=== PATIENT | female | born 1995 | race Caucasian/White ===

== ENCOUNTER 2018-07-29 14:37 | Emergency (ER) | payer OTHER ==
[2018-07-29 14:55] VITALS: BP 127/96
[2018-07-29] MEDS ORDERED: KETOROLAC TROMETHAMINE 10 MG TABLET PO ONE (15:29)
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
--- NOTE | 2018-07-29 21:06 | EKG REPORT ---
SEVERITY:- NORMAL ECG - SINUS RHYTHM : Confirmed by: Daisy Dyer MD 29-Jul-2018 21:05:48
== END 2018-07-29 16:00 | disposition home or self-care (01) ==
LOC: ER 14:37
DX: J30.9 Allergic rhinitis, unspecified (principal); G44.89 Other headache syndrome; R07.9 Chest pain, unspecified; R42 Dizziness and giddiness; R11.0 Nausea
CPT/HCPCS: 93005; 99284; 93010; J3490

== ENCOUNTER 2019-05-18 13:13 | Emergency (ER) | payer OTHER ==
--- NOTE | 2019-05-18 13:57 | ER Document Report ---
ED Medical Screen (RME) - General Chief Complaint: Vaginal Bleeding Stated Complaint: LIGHTHEADED,HEADACHE Time Seen by Provider: 05/18/19 13:52 Primary Care Provider: RAIZA DURHAM MD [Primary Care Provider] - Follow up as needed TRAVEL OUTSIDE OF THE [place] IN LAST 30 DAYS: No - HPI Notes: 05/18/19 13:55 Patient is a 24-year-old female with a history of IBS who presents complaining of vaginal bleeding for 3 weeks with associated lightheadedness and intermittent palpitations. Patient states that her bleeding has become heavier this past week. She still urinating normally and having normal bowel movements. She is on oral control pills. Last episode of palpitations was upon arrival that lasted for 30 seconds. Denies drug allergies. Denies TOL[place]O, fever, neck pain, URI, CP, SOB, Abd pain, dysuria, back pain, or rash. I have treated and performed a rapid initial assessment of this patient. A comprehensive ED assessment and evaluation of the patient, analysis of test results and completion of medical decision making process will be conducted by additional ED providers. PHYSICAL EXAMINATION: GENERAL: Well-appearing, well-nourished and in no acute distress. A&Ox4. Answers questions appropriately. LUNGS: Breath sounds clear to auscultation bilaterally and equal. No wheezes rales or rhonchi. HEART: Regular rate and rhythm without murmurs, rubs, gallops. ABDOMEN: Soft, nondistended abdomen. No guarding, no rebound. Normal bowel sounds present. No CVA tenderness bilaterally. Grossly nontender (cannot elicit thorough abd exam w/o bed, however). Ext: No edema, calf tenderness, lower extremity asymmetry. - Related Data Allergies/Adverse Reactions: No Known Allergies Allergy (Verified 05/18/19 13:14) Past Medical History - Social History Chew tobacco use (# tins/day): No Frequency of alcohol use: None Drug Abuse: None Pulmonary Medical History: Reports: Hx Asthma - as child Renal/ Medical History: Denies: Hx Peritoneal Dialysis GI Medical History: Reports: Hx Irritable Bowel Physical Exam - Vital signs Vitals: Temp Pulse Resp BP Pulse Ox 98.6 F 74 20 146/92 H 98 05/18/19 13:23 05/18/19 13:23 05/18/19 13:23 05/18/19 13:23 05/18/19 13:23 Course - Vital Signs Vital signs: Temp Pulse Resp BP Pulse Ox 98.6 F 74 20 146/92 H 98 05/18/19 13:23 05/18/19 13:23 05/18/19 13:23 05/18/19 13:23 05/18/19 13:23 Doctor's Discharge - Discharge Referrals: RAIZA DURHAM MD [Primary Care Provider] - Follow up as needed
[2019-05-18 14:46] LABS: ABSOLUTE EOSINOPHILS # (AUTO) 0.1 10^3/uL (0.0-0.6); ABSOLUTE LYMPHOCYTES (AUTO) 3.9 10^3/uL (0.5-4.7); ABSOLUTE MONOCYTES (AUTO) 0.6 10^3/uL (0.1-1.4); ABSOLUTE NEUT (AUTO) 4.6 10^3/uL (1.7-8.2); BASOPHILS % (AUTO) 0.5 % (0-2); EOSINOPHILS % (AUTO) 1.4 % (0-6); HEMATOCRIT 39.7 % (36.0-47.0); HEMOGLOBIN 13.6 g/dL (12.0-15.5); LYMPHOCYTES % (AUTO) 41.7 % (13-45); MEAN CORPUSCULAR HGB CONC 34.3 g/dL (32.0-36.0); MEAN CORPUSCULAR VOLUME 88 fl (80-97); MONOCYTES % (AUTO) 6.9 % (3-13); PLATELET COUNT 266 10^3/uL (150-450); RED BLOOD COUNT 4.53 10^6/uL (3.72-5.28); RED CELL DISTRIBUTION WIDTH 12.9 % (11.5-14.0); SEGMENTED NEUTROPHILS % (AUTO) 49.5 % (42-78); TOTAL CELLS COUNTED % (AUTO) 100 %; WHITE BLOOD COUNT 9.3 10^3/uL (4.0-10.5)
[2019-05-18 14:53] LABS: APPEARANCE,URINE SLIGHTLY-CLOUDY; BILIRUBIN,URINE NEGATIVE (NEGATIVE); COLOR,URINE YELLOW; GLUCOSE, URINE NEGATIVE (NEGATIVE); KETONES,URINE TRACE mg/dL (NEGATIVE); LEUKOCYTE ESTERASE,URINE NEGATIVE (NEGATIVE); NITRITE,URINE NEGATIVE (NEGATIVE); PROTEIN,URINE NEGATIVE (NEGATIVE); URINE SPECIFIC GRAVITY 1.026; UROBILINOGEN,URINE NEGATIVE mg/dL (<2.0)
[2019-05-18 15:05] LABS: ANION GAP 5 (5-19); BLOOD UREA NITROGEN 11 mg/dL (7-20); CALCIUM 9.3 mg/dL (8.4-10.2); CARBON DIOXIDE 27 mmol/L (22-30); CHLORIDE 103 mmol/L (98-107); GLUCOSE 82 mg/dL (75-110); POTASSIUM 4.4 mmol/L (3.6-5.0)
--- NOTE | 2019-05-18 16:42 | RADIOLOGY REPORT (SQ) ---
EXAM DESCRIPTION: U/S NON OB PEL TV W/DOPPLER COMPLETED DATE/TIME: 05/18/2019 4:13 pm REASON FOR STUDY: bleeding 3 weeks COMPARISON: None. TECHNIQUE: Dynamic and static grayscale images acquired of the pelvis via transvaginal approach and recorded on PACS. Additional selected color Doppler and spectral images recorded. LIMITATIONS: None. FINDINGS: UTERUS: Contour normal. No mass. ENDOMETRIAL STRIPE: No focal or generalized thickening. No masses. CERVIX: No nabothian cysts. RIGHT OVARY AND DOPPLER: Normal size. No worrisome masses. Normal arterial vascular flow without evid ence for torsion. LEFT OVARY AND DOPPLER: Normal size. No worrisome masses. Normal arterial vascular flow without evide nce for torsion. FREE FLUID: None noted. OTHER: No other significant finding. MEASUREMENTS: UTERUS: 7.6 x 4.5 x 3.4 cm ENDOMETRIAL STRIPE: 5 mm RIGHT OVARY: 2.3 x 1.4 x 1.6 cm LEFT OVARY: 1.2 x 1.1 x 0.9 cm IMPRESSION: NORMAL TRANSVAGINAL PELVIC ULTRASOUND. TECHNICAL DOCUMENTATION: JOB ID: [id number]- All Rights Reserved Rev-03/18 Reading location - IP/workstation name: [email or web address]
[2019-05-18] MEDS ORDERED: METOCLOPRAMIDE HCL 10 MG TABLET PO ONE (17:26)
[2019-05-18] MEDS ORDERED: DIPHENHYDRAMINE HCL 25 MG CAPSULE PO ONE (17:26)
--- NOTE | 2019-05-18 17:43 | ER Document Report ---
ED General - General Chief Complaint: Vaginal Bleeding Stated Complaint: LIGHTHEADED,HEADACHE Time Seen by Provider: 05/18/19 13:52 Primary Care Provider: RAIZA DURHAM MD [Primary Care Provider] - Follow up in 3-5 days Mode of Arrival: Ambulatory Information source: Patient, [facility] Records Notes: Patient is a 24-year-old female with a history of IBS who presents complaining of vaginal bleeding for 3 weeks with associated lightheadedness and intermittent palpitations. Patient states that her bleeding has become heavier this past week. She still urinating normally and having normal bowel movements. She is on oral control pills. Last episode of palpitations was upon arrival that lasted for 30 seconds. Denies drug allergies. Denies TOL[place]O, fever, neck pain, URI, CP, SOB, Abd pain, dysuria, back pain, or rash. Patient believes that her symptoms started after receiving the Gardasil vaccine. TRAVEL OUTSIDE OF THE [place] IN LAST 30 DAYS: No - HPI Onset: Other Onset/Duration: Gradual, Persistent, Worse Quality of pain: Cramping Severity: Mild Associated symptoms: Headache - Lightheaded, Nausea, Other. denies: Chest pain, Nonproductive cough, Productive cough, Vomiting, Shortness of breath Exacerbated by: Denies Relieved by: Denies Similar symptoms previously: No Recently seen / treated by doctor: Yes - Related Data Allergies/Adverse Reactions: No Known Allergies Allergy (Verified 05/18/19 13:14) Past Medical History - General Information source: Patient - Social History Smoking Status: Former Smoker Chew tobacco use (# tins/day): No Frequency of alcohol use: None Drug Abuse: None Lives with: Family, Spouse/Significant other Family History: Reviewed & Not Pertinent Patient has suicidal ideation: No Patient has homicidal ideation: No Pulmonary Medical History: Reports: Hx Asthma - as child Renal/ Medical History: Denies: Hx Peritoneal Dialysis GI Medical History: Reports: Hx Irritable Bowel Physical Exam - Vital signs Vitals: Temp Pulse Resp BP Pulse Ox 98.6 F 74 20 146/92 H 98 05/18/19 13:23 05/18/19 13:23 05/18/19 13:23 05/18/19 13:23 05/18/19 13:23 - Notes Notes: PHYSICAL EXAMINATION: GENERAL: Well-appearing, well-nourished and in no acute distress. HEAD: Atraumatic, normocephalic. EYES: Pupils equal round and reactive to light, extraocular movements intact, conjunctiva are normal. ENT: Nares patent, oropharynx clear without exudates. Moist mucous membranes. NECK: Normal range of motion, supple without lymphadenopathy LUNGS: Breath sounds clear to auscultation bilaterally and equal. No wheezes rales or rhonchi. HEART: Regular rate and rhythm without murmurs ABDOMEN: Soft, nontender, nondistended abdomen. No guarding, no rebound. No masses appreciated. Female : Pelvic exam; External genitalia erythematous. Speculum exam with mild bleeding. Vaginal wall unremarkable. Os closed. No cervical motion tend erness. No adnexal tenderness or masses appreciated. Swabs obtained for gonorrhea, chlamydia and wet prep. Musculoskeletal: Normal range of motion, no pitting or edema. No cyanosis. NEUROLOGICAL: Cranial nerves grossly intact. Normal speech, normal gait. Normal sensory, motor exams PSYCH: Normal mood, normal affect. SKIN: Warm, Dry, normal turgor, no rashes or lesions noted. Course - Re-evaluation Re-evalutation: Laboratory 05/18/19 05/18/19 05/18/19 14:27 14:27 14:27 WBC 9.3 RBC 4.53 Hgb 13.6 Hct 39.7 MCV 88 MCH 30.0 MCHC 34.3 RDW 12.9 Plt Count 266 Seg Neutrophils % 49.5 Lymphocytes % 41.7 Monocytes % 6.9 Eosinophils % 1.4 Basophils % 0.5 Absolute Neutrophils 4.6 Absolute Lymphocytes 3.9 Absolute Monocytes 0.6 Absolute Eosinophils 0.1 Absolute Basophils 0.0 Sodium 135.0 L Potassium 4.4 Chloride 103 Carbon Dioxide 27 Anion Gap 5 BUN 11 Creatinine 0.65 Est GFR ( Amer) > 60 Est GFR (Non-Af Amer) > 60 Glucose 82 Calcium 9.3 Magnesium 1.9 TSH 1.04 Urine Color Urine Appearance Urine pH Ur Specific [place] Urine Protein Urine Glucose (UA) Urine Ketones Urine Blood Urine Nitrite Urine Bilirubin Urine Urobilinogen Ur Leukocyte Esterase Urine WBC (Auto) Urine RBC (Auto) Squamous Epi Cells Auto Urine Mucus (Auto) Urine Ascorbic Acid Urine HCG, Qual Epi Cells (Wet Prep) Trichomonas (Wet Prep) Vaginal WBC Vaginal RBC Vaginal Yeast Chlamydia DNA (PCR) N.gonorrhoeae DNA (PCR) 05/18/19 05/18/19 05/18/19 14:27 18:25 18:25 WBC RBC Hgb Hct MCV MCH MCHC RDW Plt Count Seg Neutrophils % Lymphocytes % Monocytes % Eosinophils % Basophils % Absolute Neutrophils Absolute Lymphocytes Absolute Monocytes Absolute Eosinophils Absolute Basophils Sodium Potassium Chloride Carbon Dioxide Anion Gap BUN Creatinine Est GFR ( Amer) Est GFR (Non-Af Amer) Glucose Calcium Magnesium TSH Urine Color YELLOW Urine Appearance SLIGHTLY-CLOUDY Urine pH 6.0 Ur Specific [place] 1.026 Urine Protein NEGATIVE Urine Glucose (UA) NEGATIVE Urine Ketones TRACE H Urine Blood MODERATE H Urine Nitrite NEGATIVE Urine Bilirubin NEGATIVE Urine Urobilinogen NEGATIVE Ur Leukocyte Esterase NEGATIVE Urine WBC (Auto) 0 Urine RBC (Auto) 96 Squamous Epi Cells Auto 3 Urine Mucus (Auto) RARE Urine Ascorbic Acid 40 H Urine HCG, Qual NEGATIVE Epi Cells (Wet Prep) 3+ EPITHELIALS SEEN Trichomonas (Wet Prep) NO TRICHOMONAS SEEN Vaginal WBC NO WBCS SEEN Vaginal RBC NO RBCS SEEN Vaginal Yeast NO YEAST SEEN Chlamydia DNA (PCR) NOT DETECTED N.gonorrhoeae DNA (PCR) NOT DETECTED Transvaginal US 05/18/19 13:57 IMPRESSION: NORMAL TRANSVAGINAL PELVIC ULTRASOUND. Temp Pulse Resp BP Pulse Ox 98.6 F 76 20 132/88 H 99 05/18/19 13:23 05/18/19 18:34 05/18/19 13:23 05/18/19 18:34 05/18/19 18:34 05/18/19 18:23 Patient declining prophylactic treatment for STD. She does not want to wait for the results. 05/19/19 15:32 24-year-old female presents with complaint of prolonged vaginal bleeding. Vital signs reviewed and within normal limits. Patient does not appear toxic or dehydrated. She is in no acute distress. Patient is orthostatic negative. CBC does not show any evidence of anemia. Patient is not . Transvaginal ultrasound within normal limits. Pelvic exam unremarkable except for some scant bleeding. No STDs detected. 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 Patient was evaluated and treated as appropriate for the patient's presenting symptoms and complaint, with consideration of any critical or life threatening conditions that may be associated with their obtained history and exam as noted above. All results were discussed with patient . Patient provided the opportunity to ask questions, and express concerns. Patient was educated on treatments based on their presumed diagnosis as noted above. At this time we will discharge the patient with return precautions and follow-up recommendations. Verbal discharge instructions given a the bedside. Medication warnings reviewed. Patient is in agreement with this plan and has verbalized understanding of return precautions. After careful consideration I feel that that patient can be safely discharged from the emergency department, they were advised to followup with a primary care physician in 2-3 days. Dictation on this chart was performed using voice recognition software and may result in unintended grammatical, spelling, syntax or errors. - Vital Signs Vital signs: Temp Pulse Resp BP Pulse Ox 98.6 F 76 20 132/88 H 99 05/18/19 13:23 05/18/19 18:34 05/18/19 13:23 05/18/19 18:34 05/18/19 18:34 - Laboratory Result Diagrams: 05/18/19 14:27 05/18/19 14:27 Laboratory results interpreted by me: 05/18/19 05/18/19 14:27 14:27 Sodium 135.0 L Urine Ketones TRACE H Urine Blood MODERATE H Urine Ascorbic Acid 40 H - Diagnostic Test Radiology reviewed: Image reviewed, Reports reviewed Discharge - Discharge Clinical Impression: Dysfunctional uterine bleeding, Vulvovaginitis Condition: Good Disposition: HOME, SELF-CARE Instructions: Dysfunctional Uterine Bleeding ([facility]), Vaginitis ([facility]) Prescriptions: Miconazole Nitrate [Monistat 3] 15 gm VG BID #1 tube Forms: Elevated Blood Pressure Referrals: RAIZA DURHAM MD [Primary Care Provider] - Follow up in 3-5 days
[2019-05-18 18:34] VITALS: BP 132/88
[2019-05-18 18:39] LABS: EPITHELIALS (WET MOUNT) 3+ EPITHELIALS SEEN; RBCS (WET MOUNT) NO RBCS SEEN; T.VAGINALIS (WET MOUNT) NO TRICHOMONAS SEEN; WBCS (WET MOUNT) NO WBCS SEEN; YEAST (WET MOUNT) NO YEAST SEEN
[2019-05-18 20:02] LABS: CHLAM PCR NOT DETECTED (NOT DETECT)
== END 2019-05-18 18:35 | disposition home or self-care (01) ==
LOC: ER 13:13
DX: N93.8 Other specified abnormal uterine and vaginal bleeding (principal); N76.0 Acute vaginitis; R42 Dizziness and giddiness; R51 Headache; R11.0 Nausea; Z79.899 Other long term (current) drug therapy; Z87.891 Personal history of nicotine dependence; J45.909 Unspecified asthma, uncomplicated
CPT/HCPCS: 36415; 76830; 80048; 81001; 81025; 83735; 84443; 85025; 87210; 87491; 87591; 93976; 99284

== ENCOUNTER 2020-07-04 06:51 | Day surgery (SDC) | payer OTHER ==
[2020-07-04] MEDS ORDERED: PROPOFOL INJ 200 MG/20 ML VIAL IV ONE ×2 (07:38→07:57)
--- NOTE | 2020-07-04 08:57 | Operative Report ---
Operative Report DATE OF SURGERY: 07/04/20 Operative Report: The risk, benefits and alternatives of the procedure including the risk of bleeding, perforation requiring surgery have been explained to the patient in detail and informed consent has been obtained. Patient is placed in a left, lateral decubital position. Timeout was called. Propofol medication is administered. Rectal examination is done which did not reveal any masses, tears or fissures. An Olympus videoscope was introduced into the patient's rectum. Scope was then carefully advanced all the way to the cecum. The cecum was identified by the usual anatomical landmarks of the ileocecal valve as well as the appendiceal office. Photodocumentation is obtained. Scope was then sequentially pulled back via the various segments of the colon including the ascending colon, hepatic lecture, transverse colon, splenic flexure, descending colon and finally into the rectosigmoid portions of the colon. Retroflexion maneuvers performed. The risks benefits and alternatives of the procedure explained to the patient in detail and informed consent is obtained.A GIF Olympus video scope was inserted into the patient's mouth and hypopharynx ,the esophagus is identified intubated and insufflated, the scope was then advanced through the esophagus stomach and duodenum ,retroflexion maneuver is done ,the esophagus stomach and first and second portions of the duodenum examined PREOPERATIVE DIAGNOSIS: Change of bowel habits. Epigastric pain POSTOPERATIVE DIAGNOSIS: Gastritis status post biopsy. Duodenitis status post biopsy. Right colon inflammation status post biopsy. Mild terminal ileitis status post biopsy. Probable anal fissure OPERATION: Colonoscopy with biopsy. EGD with biopsy SURGEON: DUARTE WELCH ANESTHESIA: LMAC TISSUE REMOVED OR ALTERED: As noted above COMPLICATIONS: None. ESTIMATED BLOOD LOSS: None. INTRAOPERATIVE FINDINGS: As noted above PROCEDURE: Patient tolerated the procedure well. No immediate postprocedure complications are noted. Patient is discharged in good condition. Discharge date 07/04/2020. Discharge diet: Regular. Discharge activity: Regular. 2 to 3-week follow-up to discuss findings. Patient is instructed call the office or proceed to the emergency room should there be any further problems or questions. Wait on the pathology.
[2020-07-04 10:47] VITALS: BP 117/65
== END 2020-07-04 09:10 | disposition home or self-care (01) ==
LOC: END 06:51
PROVIDERS: ATTEND Internal Medicine Gastroenterology
DX: K29.50 Unspecified chronic gastritis without bleeding (principal); K29.80 Duodenitis without bleeding; K52.9 Noninfective gastroenteritis and colitis, unspecified; R19.8 Other specified symptoms and signs involving the digestive system and abdomen; F17.210 Nicotine dependence, cigarettes, uncomplicated; Z03.818 Encounter for observation for suspected exposure to other biological agents ruled out
CPT/HCPCS: 43239; 45380; 813; 87635; 88305; C9803; J2704